=== PATIENT | male | born 1975 | race Caucasian/White ===

== ENCOUNTER 2018-02-16 13:46 | Inpatient (IN) | payer MEDICARE, OTHER ==
[~2018-02-16] VITALS: Ht 177.8 cm; Wt 103.8 kg
[2018-02-16] MEDS ORDERED: ASPIRIN 81 MG TABLET CHEW ONE (14:09)
[2018-02-16 14:20] LABS: BASOPHILS # (AUTO) 0.06 x10^3/uL (0-0.1); BASOPHILS % (AUTO) 1 % (0-1); EOSINOPHILS # (AUTO) 0.04 x10^3/uL (0-0.4); EOSINOPHILS % (AUTO) 1 % (1-7); LYMPHOCYTES # (AUTO) 2.64 x10^3/uL (1-3.4); LYMPHOCYTES % (AUTO) 38 % (22-44); MD NO; MEAN CORPUSCULAR HEMOGLOBIN 28.8 pg (27.5-34.5); MEAN CORPUSCULAR HGB CONC 33.3 g/dL (33.2-36.2); MEAN CORPUSCULAR VOLUME 86.5 fL (81-97); MEAN PLATELET VOLUME 9.4 fL (7.4-10.4); MONOCYTES # (AUTO) 0.45 x10^3/uL (0.2-0.8); MONOCYTES % (AUTO) 7 % (2-9); NEUTROPHILS % (AUTO) 54 % (42-75); PLATELET COUNT 251 x10^3/uL (130-400); RED BLOOD COUNT 5.61 x10^6/uL (4.38-5.82)
--- NOTE | 2018-02-16 14:22 | NUR ---
patient brought in by DARLING from [facility] facility. C/C Left Chest pain 08/23, SOB and anxiety r/t the Chest Pain, L arm/shoulder pain and tingling, mild headache. 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 Contact precaution isolation initiated by this RN.
[2018-02-16 14:30] LABS: ALANINE AMINOTRANSFERASE 36 U/L (12-78); ALBUMIN 3.9 g/dL (3.4-5.0); ANION GAP 8 mmol/L (5-15); CHLORIDE 108 mmol/L (98-107); CREATININE 0.99 mg/dL (0.7-1.3)
[2018-02-16] MEDS ORDERED: ASPIRIN 81 MG TABLET CHEW PO ONE (14:30)
[2018-02-16] MEDS ORDERED: PLEASE ENTER ALLERGIES MC SCH (14:30)
[2018-02-16] MEDS ORDERED: PLEASE ENTER HEIGHT AND WEIGHT MC SCH (14:30)
[2018-02-16 14:35] LABS: ALKALINE PHOSPHATASE 80 U/L (45-117); BILIRUBIN,TOTAL 0.5 mg/dL (0.2-1.0); TOTAL PROTEIN 7.8 g/dL (6.4-8.2); TROPONIN I < 0.015 ng/mL (0.000-0.045)
[2018-02-16] MEDS ORDERED: SODIUM CHLORIDE FLUSH 10ML SYR IVF PRN (15:00)
[2018-02-16] MEDS ORDERED: D5%-0.45% NACL 1,000 ML IV SCH (15:43)
--- NOTE | 2018-02-16 15:48 | NUR ---
report to AUBREY Morillo all questions answered, no acute worsening of patient's symptoms, RTG status now, IV started, NSR on monitor, guard at bedside, safety maintained.
[2018-02-16] MEDS ORDERED: ONDANSETRON ODT 4 MG PO PRN (16:00)
[2018-02-16] MEDS ORDERED: LABETALOL 5MG/ML, 20ML IVPush PRN (16:00)
[2018-02-16] MEDS ORDERED: ONDANSETRON 2MG/ML, 2ML IVPush PRN (16:00)
[2018-02-16] MEDS ORDERED: POLYETHYLENE GLYCOL 17 GM PACKET PO PRN (16:00)
[2018-02-16 16:19] VITALS: BP 124/77
[2018-02-16 16:20] LABS: FREE T4 (FREE THYROXINE) 0.94 ng/dL (0.76-1.46); TROPONIN I < 0.015 ng/mL (0.000-0.045)
[2018-02-16] MEDS ORDERED: ACETAMINOPHEN 325 MG TABLET ONE (17:01)
[2018-02-16] MEDS: ACETAMINOPHEN 325 MG TABLET PO PRN (17:16)
[2018-02-16] MEDS: D5%-0.45% NACL 1,000 ML IV SCH (17:17)
[2018-02-16] MEDS: NICOTINE 7 MG/24 HR PATCH.TD24 TD SCH (17:51)
[2018-02-16 19:33] VITALS: BP 119/72
[2018-02-16 22:13] LABS: TROPONIN I < 0.015 ng/mL (0.000-0.045)
[2018-02-17] VITALS (11 sets, daily range): BP systolic 107–161; BP diastolic 62–100
[2018-02-17] MEDS: D5%-0.45% NACL 1,000 ML IV SCH (00:44)
[2018-02-17] MEDS: ACETAMINOPHEN 325 MG TABLET PO PRN ×3 (01:25→20:43)
[2018-02-17 05:15] LABS: BASOPHILS # (AUTO) 0.05 x10^3/uL (0-0.1); BASOPHILS % (AUTO) 1 % (0-1); EOSINOPHILS # (AUTO) 0.23 x10^3/uL (0-0.4); EOSINOPHILS % (AUTO) 3 % (1-7); LYMPHOCYTES # (AUTO) 3.42 x10^3/uL (1-3.4); LYMPHOCYTES % (AUTO) 43 % (22-44); MD NO; MEAN CORPUSCULAR HEMOGLOBIN 28.9 pg (27.5-34.5); MEAN CORPUSCULAR HGB CONC 33.3 g/dL (33.2-36.2); MEAN CORPUSCULAR VOLUME 86.8 fL (81-97); MEAN PLATELET VOLUME 9.2 fL (7.4-10.4); MONOCYTES # (AUTO) 0.71 x10^3/uL (0.2-0.8); MONOCYTES % (AUTO) 9 % (2-9); NEUTROPHILS # (AUTO) 3.54 x10^3/uL (1.8-6.8); NEUTROPHILS % (AUTO) 45 % (42-75); PLATELET COUNT 225 x10^3/uL (130-400); RED BLOOD COUNT 5.25 x10^6/uL (4.38-5.82)
[2018-02-17 05:19] LABS: ALANINE AMINOTRANSFERASE 32 U/L (12-78); ALBUMIN 3.6 g/dL (3.4-5.0); ANION GAP 6 mmol/L (5-15); CALCIUM 8.1 mg/dL (8.5-10.1); CHLORIDE 106 mmol/L (98-107); CREATININE 1.01 mg/dL (0.7-1.3)
[2018-02-17 05:29] LABS: ALKALINE PHOSPHATASE 67 U/L (45-117); BILIRUBIN,TOTAL 0.4 mg/dL (0.2-1.0); TOTAL PROTEIN 7.1 g/dL (6.4-8.2)
[2018-02-17 08:42] LABS: TROPONIN I < 0.015 ng/mL (0.000-0.045)
[2018-02-17] MEDS: APIXABAN 5 MG TABLET PO SCH ×2 (09:19→20:43)
[2018-02-17] MEDS: SENNA/DOCUSATE TABLET PO SCH (09:19)
[2018-02-17] MEDS: MAGNESIUM HYDROXIDE 8%, 30ML UDC PO PRN (11:50)
[2018-02-17] MEDS ORDERED: APIX5TAB PO (13:24)
[2018-02-17] MEDS ORDERED: LIDO700A20 TD (13:25)
[2018-02-17] MEDS ORDERED: PINK LADY ENEMA 490 ML BOTTLE PR SCH (13:30)
--- NOTE | 2018-02-17 14:53 | NUR ---
REGISTRATION,A4979 - Fall Risk Medications NOT present and receiving anticoagulants (APIXABAN). Signed: 02/17/18 at 1454 by Socorro RODNEY
[2018-02-17] MEDS ORDERED: SODIUM CHLORIDE 0.9%, 500ML IVBOLUS ONE (15:30)
[2018-02-17] MEDS: NICOTINE 7 MG/24 HR PATCH.TD24 TD SCH (16:39)
[2018-02-17] MEDS: SODIUM CHLORIDE 0.9% 1,000 ML IV SCH (18:03)
[2018-02-18] MEDS: SODIUM CHLORIDE 0.9% 1,000 ML IV SCH ×2 (01:09→07:20)
[2018-02-18 01:14] VITALS: BP_SYST 115; BP_SYST 134; BP_SYST 96; BP_DIAS 55; BP_DIAS 76; BP_DIAS 84
[2018-02-18 05:22] LABS: BASOPHILS # (AUTO) 0.06 x10^3/uL (0-0.1); BASOPHILS % (AUTO) 1 % (0-1); EOSINOPHILS # (AUTO) 0.26 x10^3/uL (0-0.4); EOSINOPHILS % (AUTO) 4 % (1-7); LYMPHOCYTES % (AUTO) 50 % (22-44); MD NO; MEAN CORPUSCULAR HEMOGLOBIN 28.9 pg (27.5-34.5); MEAN CORPUSCULAR HGB CONC 33.6 g/dL (33.2-36.2); MEAN CORPUSCULAR VOLUME 85.9 fL (81-97); MEAN PLATELET VOLUME 9.3 fL (7.4-10.4); MONOCYTES % (AUTO) 9 % (2-9); NEUTROPHILS % (AUTO) 37 % (42-75); PLATELET COUNT 213 x10^3/uL (130-400); RED BLOOD COUNT 4.88 x10^6/uL (4.38-5.82)
[2018-02-18 05:27] LABS: ANION GAP 6 mmol/L (5-15); CALCIUM 8.1 mg/dL (8.5-10.1); CHLORIDE 110 mmol/L (98-107)
[2018-02-18 05:33] LABS: ALANINE AMINOTRANSFERASE 27 U/L (12-78); ALBUMIN 3.3 g/dL (3.4-5.0); ALKALINE PHOSPHATASE 64 U/L (45-117); BILIRUBIN,TOTAL 0.4 mg/dL (0.2-1.0); CREATININE 0.97 mg/dL (0.7-1.3); TOTAL PROTEIN 6.5 g/dL (6.4-8.2)
[2018-02-18] MEDS: MAGNESIUM HYDROXIDE 8%, 30ML UDC PO PRN (05:35)
[2018-02-18 09:47] VITALS: BP 114/57
[2018-02-18] MEDS: SENNA/DOCUSATE TABLET PO SCH (10:48)
[2018-02-18] MEDS: APIXABAN 5 MG TABLET PO SCH (10:48)
[2018-02-18] MEDS ORDERED: POLY17PO5 PO (11:48)
[2018-02-18] MEDS ORDERED: SENN8.6T98 PO (11:49)
[2018-02-24] MEDS ORDERED: APIXABAN 5 MG TABLET PO SCH (09:00)
== END 2018-02-18 14:52 | disposition home or self-care (01) | DRG 392 ==
LOC: ED 14:41 → EDIP 14:50 → 5SO 16:10
PROVIDERS: ADMIT Internal Medicine; ATTEND Internal Medicine
DX: K21.9 Gastro-esophageal reflux disease without esophagitis (principal); D68.2 Hereditary deficiency of other clotting factors; D68.51 Activated protein C resistance; I50.30 Unspecified diastolic (congestive) heart failure; F15.10 Other stimulant abuse, uncomplicated; W18.39XA Other fall on same level, initial encounter; F17.210 Nicotine dependence, cigarettes, uncomplicated; K59.00 Constipation, unspecified; M19.012 Primary osteoarthritis, left shoulder; Z82.3 Family history of stroke; Z82.49 Family history of ischemic heart disease and other diseases of the circulatory system; Z83.3 Family history of diabetes mellitus; Z86.14 Personal history of Methicillin resistant Staphylococcus aureus infection; Z86.711 Personal history of pulmonary embolism; Z86.718 Personal history of other venous thrombosis and embolism; Y93.89 Activity, other specified; Y92.148 Other place in prison as the place of occurrence of the external cause; Y99.8 Other external cause status; Z79.01 Long term (current) use of anticoagulants; Z79.899 Other long term (current) drug therapy
CPT/HCPCS: 36415; 70450; 71045; 71275; 80053; 82533; 83735; 84100; 84439; 84443; 84484; 85025; 85379; 90656; 93005; 93306; 93970; 99285; G0378; J2405; J7030; J7040

== ENCOUNTER 2018-05-02 09:02 | Emergency (ER) | payer SELFPAY ==
[~2018-05-02] VITALS: Ht 180.3 cm; Wt 106.7 kg
[~2018-05-02 09:02] MED LIST: APIX5TAB PO; LIDO700A20 TD; POLY17PO5 PO; SENN8.6T98 PO
[2018-05-02 09:05] VITALS: BP 139/78
--- NOTE | 2018-05-02 09:18 | NUR ---
pt sitting in chair awaiting provider. requesting prescription for blood thinner until he establishes provider. no complaints at this time
--- NOTE | 2018-05-02 09:41 | NUR ---
LAB AT BEDSIDE
[2018-05-02 10:08] LABS: BASOPHILS # (AUTO) 0.06 x10^3/uL (0-0.1); BASOPHILS % (AUTO) 1 % (0-1); EOSINOPHILS # (AUTO) 0.35 x10^3/uL (0-0.4); EOSINOPHILS % (AUTO) 4 % (1-7); LYMPHOCYTES # (AUTO) 2.52 x10^3/uL (1-3.4); LYMPHOCYTES % (AUTO) 28 % (22-44); MD NO; MEAN CORPUSCULAR HEMOGLOBIN 29.6 pg (27.5-34.5); MEAN CORPUSCULAR HGB CONC 33.9 g/dL (33.2-36.2); MEAN CORPUSCULAR VOLUME 87.3 fL (81-97); MONOCYTES # (AUTO) 0.68 x10^3/uL (0.2-0.8); MONOCYTES % (AUTO) 8 % (2-9); NEUTROPHILS % (AUTO) 60 % (42-75); PLATELET COUNT 186 x10^3/uL (130-400); RED CELL DISTRIBUTION WIDTH 15.6 % (9.4-14.8)
[2018-05-02 10:15] LABS: INTERNATIONAL NORMALIZED RATIO 0.92 (0.93-1.1); PROTHROMBIN TIME 9.7 Seconds (9.6-11.5)
[2018-05-02 10:19] LABS: ANION GAP 4 mmol/L (5-15); CALCIUM 8.8 mg/dL (8.5-10.1); CHLORIDE 109 mmol/L (98-107); CREATININE 0.79 mg/dL (0.7-1.3)
== END 2018-05-02 10:55 | disposition home or self-care (01) ==
LOC: ED 09:35
DX: R20.2 Paresthesia of skin (principal); Z76.0 Encounter for issue of repeat prescription
CPT/HCPCS: 36415; 80048; 82040; 85025; 85610; 99283

== ENCOUNTER 2018-06-11 05:07 | Emergency (ER) | payer MEDICAID, OTHER ==
[~2018-06-11] VITALS: Ht 180.3 cm; Wt 103.8 kg
[2018-06-11 05:09] VITALS: BP 122/83
== END 2018-06-11 05:29 | disposition home or self-care (01) ==
LOC: ED 05:25
DX: S90.822A Blister (nonthermal), left foot, initial encounter (principal); S90.821A Blister (nonthermal), right foot, initial encounter; X50.3XXA Overexertion from repetitive movements, initial encounter; Y93.01 Activity, walking, marching and hiking; Y93.89 Activity, other specified; Y92.89 Other specified places as the place of occurrence of the external cause; Y99.8 Other external cause status
CPT/HCPCS: 99281

== ENCOUNTER 2018-12-07 07:55 | Emergency (ER) | payer MEDICAID ==
[~2018-12-07] VITALS: Ht 180.3 cm; Wt 109.0 kg
[2018-12-07 07:57] VITALS: BP 124/65
== END 2018-12-07 08:32 | disposition home or self-care (01) ==
LOC: ED 08:07
DX: D68.62 Lupus anticoagulant syndrome (principal); Z76.0 Encounter for issue of repeat prescription; Z86.718 Personal history of other venous thrombosis and embolism
CPT/HCPCS: 99283

== ENCOUNTER 2019-04-10 15:15 | Emergency (ER) | payer MEDICAID ==
[~2019-04-10] VITALS: Ht 180.3 cm; Wt 111.5 kg
[2019-04-10 15:49] VITALS: BP 120/82
[2019-04-10] MEDS ORDERED: METHOCARBAMOL 750 MG TABLET PO ONE (16:00)
[2019-04-10] MEDS ORDERED: KETOROLAC 30 MG/1 ML IM ONE (16:00)
--- NOTE | 2019-04-10 16:00 | NUR ---
Pt ambulated with steady gait and balance to x ray. NADN. No needs expressed.
[2019-04-10] MEDS ORDERED: METHOCARBAMOL 750 MG TABLET ONE (16:03)
[2019-04-10] MEDS ORDERED: KETOROLAC 30 MG/1 ML ONE (16:03)
--- NOTE | 2019-04-10 17:46 | NUR ---
Patient given discharge instructions and they have confirmed that they understand the instructions. Patient ambulatory with steady gait. Pt left with d/c paperwork, Rx, and all personal belongings.
== END 2019-04-10 17:49 | disposition home or self-care (01) ==
LOC: ED 17:15
DX: S39.012A Strain of muscle, fascia and tendon of lower back, initial encounter (principal); Z86.718 Personal history of other venous thrombosis and embolism; X58.XXXA Exposure to other specified factors, initial encounter; Y93.89 Activity, other specified; Y92.89 Other specified places as the place of occurrence of the external cause; Y99.8 Other external cause status
CPT/HCPCS: 72110; 96372; 99283; J1885

== ENCOUNTER 2019-04-25 09:22 | Emergency (ER) | payer MEDICAID ==
[~2019-04-25] VITALS: Ht 180.3 cm; Wt 113.0 kg
--- NOTE | 2019-04-25 10:18 | NUR ---
SECURITY COORDINATOR: PT TO ROOM FROM LOBBY
[2019-04-25 10:36] LABS: BASOPHILS # (AUTO) 0.04 x10^3/uL (0-0.1); BASOPHILS % (AUTO) 1 % (0-1); EOSINOPHILS # (AUTO) 0.16 x10^3/uL (0-0.4); EOSINOPHILS % (AUTO) 2 % (1-7); LYMPHOCYTES % (AUTO) 32 % (22-44); MD NO; MEAN CORPUSCULAR HEMOGLOBIN 29.7 pg (27.5-34.5); MEAN CORPUSCULAR HGB CONC 33.3 g/dL (33.2-36.2); MEAN CORPUSCULAR VOLUME 89.2 fL (81-97); MEAN PLATELET VOLUME 9.4 fL (7.4-10.4); MONOCYTES # (AUTO) 0.65 x10^3/uL (0.2-0.8); MONOCYTES % (AUTO) 8 % (2-9); NEUTROPHILS # (AUTO) 4.38 x10^3/uL (1.8-6.8); NEUTROPHILS % (AUTO) 57 % (42-75); PLATELET COUNT 185 x10^3/uL (130-400); RED BLOOD COUNT 4.97 x10^6/uL (4.38-5.82); RED CELL DISTRIBUTION WIDTH 14.4 % (9.4-14.8)
[2019-04-25 10:41] LABS: ALANINE AMINOTRANSFERASE 44 U/L (12-78); ALBUMIN 4.1 g/dL (3.4-5.0); ANION GAP 7 mmol/L (5-15); CALCIUM 8.5 mg/dL (8.5-10.1); CHLORIDE 109 mmol/L (98-107); CREATININE 0.92 mg/dL (0.7-1.3)
[2019-04-25 10:43] LABS: ALKALINE PHOSPHATASE 61 U/L (45-117); BILIRUBIN,TOTAL 0.5 mg/dL (0.2-1.0); TOTAL PROTEIN 7.4 g/dL (6.4-8.2)
--- NOTE | 2019-04-25 11:00 | NUR ---
RECEIVED REPORT FROM FREDDY PIMENTEL UPRIGHT ON [place] AWAKE & CALM, WATCHING TV, RESPONDS APPROP TO STAFF, COMFORT MEASURES PROVIDED, CALL LIGHT WITHIN REACH.
[2019-04-25 11:50] LABS: RAPID INFLUENZA A Negative (Negative); RAPID INFLUENZA B Negative (Negative)
--- NOTE | 2019-04-25 11:57 | NUR ---
PT REMAINS UPRIGHT ON [place] AWAKE & CALM, WATCHING TV, RESPONDS APPROP TO STAFF, COMFORT MEASURES PROVIDED, CALL LIGHT WITHIN REACH.
[2019-04-25 12:56] VITALS: BP 110/65
== END 2019-04-25 12:58 | disposition home or self-care (01) ==
LOC: ED 12:37
DX: L03.314 Cellulitis of groin (principal); J06.9 Acute upper respiratory infection, unspecified; F17.200 Nicotine dependence, unspecified, uncomplicated; Z86.718 Personal history of other venous thrombosis and embolism
CPT/HCPCS: 36415; 71046; 80053; 85025; 87081; 87400; 87880; 93005; 99285

== ENCOUNTER 2019-10-27 04:47 | Emergency (ER) | payer MEDICAID ==
[~2019-10-27] VITALS: Ht 180.3 cm; Wt 115.2 kg
--- NOTE | 2019-10-27 05:16 | NUR ---
PT HERE FOR PAIN TO RIGHT SIDE OF NECK WITH PAINFUL SWOLLOWING AND DIZZINESS X 2 DAYS. VSS. PT ALSO HAS CLOTTING DISORDER AND HAS HX OF PE AND DVT. PT HAS NOT TAKEN BLOOD THINNERS IN 6 MONTHS. PA AT BEDSIDE. CALL LIGHT IN REACH
[2019-10-27] MEDS ORDERED: SODIUM CHLORIDE FLUSH 10ML SYR IVF ONE (05:30)
[2019-10-27] MEDS ORDERED: ONDANSETRON 2MG/ML, 2ML IVPush ONE (05:30)
[2019-10-27] MEDS ORDERED: ONDANSETRON 2MG/ML, 2ML ONE (05:48)
[2019-10-27] MEDS ORDERED: MORPHINE SULFATE 4 MG/ML, 1ML ONE ×2 (05:48→06:31)
[2019-10-27] MEDS: MORPHINE SULFATE 4 MG/ML, 1ML IVPush PRN ×2 (05:53→06:34)
--- NOTE | 2019-10-27 06:00 | NUR ---
IV STARTED, BLOOD DRAWN AND SENT TO LAB. PT MEDICATED PER ORDER. VSS, RR EQUAL AND UNLABORED. PLACED ON CONT PULSE OX. SIDE RAILS UP, CALL PRIEST IN REACH. WAITING FOR CT. AIDET PROVIDED.
[2019-10-27 06:01] LABS: BASOPHILS # (AUTO) 0.04 x10^3/uL (0-0.1); BASOPHILS % (AUTO) 1 % (0-1); EOSINOPHILS # (AUTO) 0.22 x10^3/uL (0-0.4); EOSINOPHILS % (AUTO) 3 % (1-7); LYMPHOCYTES # (AUTO) 2.67 x10^3/uL (1-3.4); LYMPHOCYTES % (AUTO) 33 % (22-44); MD NO; MEAN CORPUSCULAR HEMOGLOBIN 29.5 pg (27.5-34.5); MEAN CORPUSCULAR VOLUME 89.4 fL (81-97); MEAN PLATELET VOLUME 9.3 fL (7.4-10.4); MONOCYTES # (AUTO) 0.71 x10^3/uL (0.2-0.8); MONOCYTES % (AUTO) 9 % (2-9); NEUTROPHILS # (AUTO) 4.57 x10^3/uL (1.8-6.8); NEUTROPHILS % (AUTO) 56 % (42-75); PLATELET COUNT 178 x10^3/uL (130-400); RED BLOOD COUNT 5.26 x10^6/uL (4.38-5.82); RED CELL DISTRIBUTION WIDTH 13.8 % (9.4-14.8)
[2019-10-27 06:06] LABS: ALBUMIN 3.9 g/dL (3.4-5.0); ANION GAP 6 mmol/L (5-15); CALCIUM 8.9 mg/dL (8.5-10.1); CHLORIDE 110 mmol/L (98-107); CREATININE 0.89 mg/dL (0.7-1.3)
--- NOTE | 2019-10-27 06:25 | NUR ---
BACK FROM CT, REPORTS STILL WITH SEVERE PAIN, MS NOT HELPING. 08/23. VSS STABLE.
[2019-10-27] MEDS ORDERED: OMNIPAQUE 350 MG/ML, 100ML BOTTLE ONE (06:42)
--- NOTE | 2019-10-27 06:54 | NUR ---
SBAR HAND-OFF REPORT RECEIVED FROM AUBREY KEYES. ASSUMING CARE OF PATIENT.
[2019-10-27 07:02] VITALS: BP 115/78
[2019-10-27] MEDS ORDERED: RIVA20TA PO (07:05)
[2019-10-27] MEDS ORDERED: IBUP200T64 PO (07:07)
[2019-10-27] MEDS ORDERED: OXYcodone/APAP 5/325MG TABLET ONE (08:25)
[2019-10-27] MEDS ORDERED: OXYcodone/APAP 5/325MG TABLET PO ONE (08:30)
--- NOTE | 2019-10-27 09:18 | NUR ---
Patient given discharge instructions and they have confirmed that they understand the instructions. Patient ambulatory with steady gait.
== END 2019-10-27 09:19 | disposition home or self-care (01) ==
LOC: ED 05:53
DX: M54.2 Cervicalgia (principal); Z91.19 Patient's noncompliance with other medical treatment and regimen; Z86.718 Personal history of other venous thrombosis and embolism
CPT/HCPCS: 36415; 70491; 80048; 82040; 85025; 87081; 87880; 93005; 96374; 96375; 96376; 99285; J2270; J2405; Q9967